=== PATIENT | female | born 1990 | race African-American/Black ===

== ENCOUNTER 2022-03-26 09:24 | Emergency (ER) | payer OTHER ==
[2022-03-26 10:44] LABS: Absolute Lymphocytes (CBC) 1.2 K/uL (0.7-4.9); Hematocrit 29.8 % (36.0-45.0); Lymphocytes % 10.6 % (15.3-44.8); MPV 8.7 fL (7.6-11.3); RBC Red Blood Cell Count 4.68 M/uL (3.86-4.86)
[2022-03-26 11:17] LABS: Albumin 3.5 g/dL (3.4-5.0); Bilirubin Total 0.8 mg/dL (0.2-1.0); Protein, Total 9.3 g/dL (6.4-8.2); Troponin High Sensitivity 4.5 pg/mL (<58.9)
[2022-03-26 11:21] LABS: Potassium 4.2 mmol/L (3.5-5.1)
--- NOTE | 2022-03-26 11:30 | RAD REPORT ---
EXAM DESCRIPTION: RAD - Chest Single View - 03/26/2022 11:22 am CLINICAL HISTORY: chest pain, sob COMPARISON: CHEST SINGLE VIEW dated 12/06/2008; CHEST SINGLE VIEW dated 12/21/1998 FINDINGS: Lines: None. Lungs: No evidence of edema or pneumonia. Pleural: No significant pleural effusions or pneumothorax. Cardiac: Mild cardiomegaly. Bones: No acute fractures. Sternotomy. Other: IMPRESSION: No acute cardiopulmonary disease.
[2022-03-26 12:31] LABS: Urine Blood Negative (Negative); Urine Glucose Negative (Negative); Urine Protein 1+ (Negative); Urine Specific Gravity >=1.030 (1.005-1.030)
[2022-03-26 12:35] LABS: Anisocytosis 1+; Blood Morphology Comment NOTED (NOT SEEN); Hypochromasia 2+; Platelet Estimate ADEQ; White Blood Cell Scan OK (OK)
--- NOTE | 2022-03-26 15:16 | RAD REPORT ---
EXAM DESCRIPTION: CT - Chest For Pe Angio - 03/26/2022 2:57 pm CLINICAL HISTORY: Chest pain. elevated d-dimer COMPARISON: No comparisons TECHNIQUE: CT angiogram of the pulmonary arteries was performed with MIP. All CT scans are performed using dose optimization technique as appropriate and may include automated exposure control or mA/KV adjustment according to patient size. FINDINGS: No evidence of pulmonary thromboembolism. No acute aortic finding demonstrated. The lungs are clear. No significant pericardial or pleural fluid. No concerning bony finding. IMPRESSION: No evidence of pulmonary thromboembolism. No acute lung findings.
--- NOTE | 2022-03-26 15:51 | ER ---
Nurse's Notes [facility] Name: Jaspreet Lackey Age: 31 yrs Sex: Female : 1990 Arrival Date: 03/26/2022 Time: 09:28 Bed 12 Private MD: Diagnosis: Anemia, unspecified Presentation: 03/26 10:49 Coronavirus screen: At this time, the client does not indicate any symptoms associated iw with coronavirus-19. Ebola Screen: Patient negative for fever greater than or equal to 101.5 degrees Fahrenheit, and additional compatible Ebola Virus Disease symptoms Patient denies exposure to infectious person. Patient denies travel to an Ebola-affected area in the 21 days before illness onset. No symptoms or risks identified at this time. 10:49 Acuity: RODRICK 3 iw 10:49 Method Of Arrival: Ambulatory iw 10:50 Chief complaint: Patient states: SOB and vomited this morning. iw 16:07 Chief complaint:. guillen 16:09 Initial Sepsis Screen: Does the patient meet any 2 criteria? No. Patient's initial guillen sepsis screen is negative. Does the patient have a suspected source of infection? No. Patient's initial sepsis screen is negative. Risk Assessment: Do you want to hurt yourself or someone else? Patient reports no desire to harm self or others. Onset of symptoms was March 24, 2022. Triage Assessment: 16:09 General: Appears in no apparent distress. Behavior is calm, cooperative. Respiratory: guillen Reports shortness of breath at rest on exertion Onset: The symptoms/episode began/occurred gradually, the patient has moderate shortness of breath. Historical: - Allergies: 10:50 No Known Allergies; iw - Home Meds: 10:50 None [Active]; iw - PMHx: 10:50 None; iw - Immunization history:: Adult Immunizations up to date. - Social history:: Smoking status: Patient denies any tobacco usage or history of. Screenin:08 Abuse screen: Denies threats or abuse. Denies injuries from another. Nutritional guillen screening: No deficits noted. Tuberculosis screening: No symptoms or risk factors identified. Fall Risk None identified. Assessment: 16:08 Pain: Complains of pain in throat pain. Cardiovascular: Rhythm is regular. Respiratory: guillen Airway is patent Respiratory effort is even, unlabored, Breath sounds are clear bilaterally. GI: Reports nausea, vomiting. Vital Signs: 10:49 BP 107 / 53; Pulse 80; Resp 16; Temp 98.1; Pulse Ox 100% on R/A; iw ED Course: 09:28 Patient arrived in ED. rg4 09:32 Colt Lal PA is PHCP. [facility] 09:32 Sergio Luu MD is Attending Physician. [facility] 09:42 Inserted saline lock: 20 gauge 22 gauge in left antecubital area, using aseptic tp1 technique. Blood collected. 10:26 EKG done, by ED staff, reviewed by Colt BAÑUELOS. mb7 10:26 Allergy band placed. Bed in low position. Call light in reach. Side rails up X 1. Door mb7 closed. Noise minimized. Warm blanket given. 10:49 Agatha Nevarez, RN is Primary Nurse. iw 10:49 Triage completed. iw 11:23 Chest Single View XRAY In Process Unspecified. EDMS 11:30 D-Dimer Sent. iw 14:59 CT Chest For PE Angio In Process Unspecified. EDMS 16:08 No provider procedures requiring assistance completed. Inserted saline lock: IV guillen discontinued, intact, Pressure dressing applied. 16:09 Arm band placed on. guillen Administered Medications: No medications were administered Medication: 16:08 VIS not applicable for this client. guillen Outcome: 15:51 Discharge ordered by . [facility] 16:08 Discharged to home ambulatory. guillen 16:08 Condition: good 16:08 Discharge instructions given to patient, Prescriptions given X 1. 16:10 Patient left the ED. guillen Signatures: Dispatcher [employer] EDNM Colt Lal PA PA Agatha Ochoa, Jessica [place] RN rg4 Liliana Blackman tp1 Radha Lyons mb7 Janis Alvarez RN RN guillen Corrections: (The following items were deleted from the chart) 11:06 11:05 Inserted saline lock: 20 gauge 22 gauge in left antecubital area, using aseptic tp1 technique. Blood collected. tp1
--- NOTE | 2022-03-26 15:51 | EDPHYS ---
Physician Documentation [facility] Name: Jaspreet Lackey Age: 31 yrs Sex: Female : 1990 Arrival Date: 03/26/2022 Time: 09:28 Bed 12 Private MD: ED Physician Sergio Luu HPI: 03/26 09:48 This 31 yrs old Black Female presents to ER via Unassigned with complaints of Breathing jmm Difficulty. 09:48 The patient has shortness of breath at rest. Onset: The symptoms/episode began/occurred jmm gradually. Duration: The symptoms are continuous, and are unchanged since they started. This is a 31-year-old female with no known chronic medical conditions presents emerged part with complaints of shortness of breath, palpitations beginning after an episode of vomiting this morning. Patient denies diarrhea, denies abdominal pain. Patient also complains of some chest pain. Historical: - Allergies: 10:50 No Known Allergies; iw - Home Meds: 10:50 None [Active]; iw - PMHx: 10:50 None; iw - Immunization history:: Adult Immunizations up to date. - Social history:: Smoking status: Patient denies any tobacco usage or history of. ROS: 09:48 Constitutional: Negative for fever, chills, and weight loss, Respiratory: Negative for jmm shortness of breath, cough, wheezing, and pleuritic chest pain. 09:48 Cardiovascular: Positive for chest pain, palpitations. 09:48 Abdomen/GI: Positive for nausea and vomiting. 09:48 All other systems are negative. Exam: 09:48 Constitutional: This is a well developed, well nourished patient who is awake, alert, jmm and in no acute distress. Head/Face: atraumatic. Eyes: EOMI, no conjunctival erythema appreciated ENT: Moist Mucus Membranes Neck: Trachea midline, Supple Chest/axilla: Normal chest wall appearance and motion. Cardiovascular: Regular rate and rhythm. No edema appreciated Respiratory: Normal respirations, no respiratory distress appreciated Abdomen/GI: Non distended, soft Back: Normal ROM Skin: General appearance color normal MS/ Extremity: Moves all extremities, no obvious deformities appreciated, no edema noted to the lower extremities Neuro: Awake and alert Psych: Behavior is normal, Mood is normal, Patient is cooperative and pleasant Vital Signs: 10:49 BP 107 / 53; Pulse 80; Resp 16; Temp 98.1; Pulse Ox 100% on R/A; iw MDM: 09:[address] [facility] 15:49 Immunization status:. Data reviewed: vital signs, nurses notes. Counseling: I had a [facility] detailed discussion with the patient and/or guardian regarding: the historical points, exam findings, and any diagnostic results supporting the discharge/admit diagnosis, lab results, radiology results, the need for outpatient follow up, to return to the emergency department if symptoms worsen or persist or if there are any questions or concerns that arise at home. 03/26 09:39 Order name: CBC with Diff; Complete Time: 12:40 [facility] 03/26 09:39 Order name: CMP; Complete Time: 11:45 [facility] 03/26 09:39 Order name: Lipase; Complete Time: 11:45 [facility] 03/26 09:39 Order name: Troponin High Sensitivity; Complete Time: 11:45 [facility] 03/26 09:50 Order name: D-Dimer; Complete Time: 12:09 [facility] 03/26 10:51 Order name: SARS-COV-2 RT PCR (Document "Date of Onset" if Symptomatic); Complete Time: [facility] 12:24 03/26 09:39 Order name: IV Saline Lock; Complete Time: 10:50 [facility] 03/26 09:39 Order name: Labs collected and sent; Complete Time: 10:50 [facility] 03/26 09:40 Order name: Chest Single View XRAY; Complete Time: 11:45 [facility] 03/26 12:09 Order name: CT Chest For PE Angio; Complete Time: 15:27 [facility] 03/26 12:31 Order name: Urine Dipstick-Ancillary; Complete Time: 12:31 [facility] 03/26 12:36 Order name: CBC Smear Scan; Complete Time: 12:40 [facility] 03/26 09:39 Order name: Urine Dipstick-Ancillary (obtain specimen); Complete Time: 12:31 [facility] 03/26 09:39 Order name: Urine Test (obtain specimen); Complete Time: 12:31 [facility] 03/26 09:39 Order name: EKG - Nurse/Tech; Complete Time: 10:07 [facility] Administered Medications: No medications were administered Disposition: 16:38 Co-signature as Attending Physician, Sergio Luu MD. rn Disposition Summary: 03/26/22 15:51 Discharge Ordered Location: Home jm Condition: Stable jmm Diagnosis - Anemia, unspecified jmm Followup: jmm - With: Private Physician - When: 2 - 3 days - Reason: Recheck today's complaints, Continuance of care, Re-evaluation by your physician Discharge Instructions: - Discharge Summary Sheet jmm - Anemia jm Forms: - Medication Reconciliation Form jm - Thank You Letter jm - Antibiotic Education jm - Prescription Opioid Use jm Prescriptions: - Ferrous Sulfate 325 mg (65 mg Iron) Oral Tablet - take 1 tablet by ORAL route every 8 hours; 90 tablet; Refills: 0, Product jm Selection Permitted Signatures: Dispatcher [employer] Colt Pete PA PA jmm Williams, Irene, RN Sergio Rosas MD MD rn Aissatou-StageJanis rojo RN RN guillen
[2022-03-26 16:16] VITALS: BP 107/53; TEMP 98.1; O2SAT 100
--- NOTE | 2022-03-27 07:56 | EKG ---
Test Date: 2022-03-26 Test Time: 09:52:18 Senior Information Systems Architect: MB MEASUREMENT RESULTS: Intervals: Rate: 75 MN: 188 QRSD: 88 QT: 376 QTc: 419 [place]: P: 64 MN: 188 QRS: 98 T: 73 INTERPRETIVE STATEMENTS: Normal sinus rhythm Rightward axis Borderline ECG Compared to ECG 12/06/2008 07:57:27 Right-axis deviation now present Sinus bradycardia no longer present Incomplete right bundle-branch block no longer present ST (T wave) deviation no longer present Myocardial infarct finding no longer present Electronically Signed On 03-27-22 07:52:26 CDT by Amrik Kelly
== END 2022-03-26 16:10 | disposition home or self-care (01) ==
LOC: ER 09:24
DX: D64.9 Anemia, unspecified (principal); R11.2 Nausea with vomiting, unspecified; Z20.822 Contact with and (suspected) exposure to COVID-19
CPT/HCPCS: 93005; 85025; 36415; 85379; 81003; 84484; 83690; 80053; 71275; 71045; 99284; U0003; Q9967

== ENCOUNTER 2023-07-22 12:20 | Emergency (ER) | payer OTHER ==
--- OUTSIDE RECORDS SUMMARY | 2023-07-22 12:23 | XMS REPORT | Continuity of Care Document ---
:1990 Author Organization [facility] t Address [address] [place] [address] [place] [id number] Care Team Providers Name Role Phone DELON SANTANA Attending Clinician Unavailable Delon Santana Attending Clinician DELON SANTANA Admitting Clinician Unavailable Problems Condition Condition Condition Status Onset Resolution Last Treating Co mments Source Name Details Category Date Date Treatment Clinician Date 01538, 86373, Diagnosis Active 2021-11-12 Me moria E66.01, E66.01, 05-16 10:29:00 l MORBID MORBID 00:00: [place] OBESITY OBESITY 00 Active 05/16/2021 [facility] K21.9 K21.9 Diagnosis Active 2021-04-02 Mem oria Active 03-28 09:13:00 l 03/28/2021 00:00: Jay n 00 [facility] Allergies, Adverse Reactions, Alerts This patient has no known allergies or adverse reactions. Medications This patient has no known medications. Vital Signs Vital Name Observation Time Observation Value Comments Source Height 2021-04-02 14:41:00 167.64 cm [facility] Weight 2021-04-02 14:41:00 [facility] BMI Calculated 2021-04-02 14:41:00 Akbar carballo [place] Height 2021-04-02 14:36:00 167.64 cm [facility] Weight 2021-04-02 14:36:00 Nir Amos BMI Calculated 2021-04-02 14:36:00 Akbar Swanson Procedures This patient has no known procedures. Encounters Start End Encounter Admission Attending Care Care Encounter Source Date/Time Date/Time Type Type Clinicians Facility Department ID 2021-05-17 Inpatient [facility] [id number] Me moria 11:23:45 [facility] 2021-04-02 2021-04-02 Bedded [facility] [id number] Memoria 14:10:00 17:10:00 Outpatient r Dandre [address] [facility] 2021-04-02 2021-04-02 Outpatient [facility] GISEL [id number] Memoria 09:10:00 12:10:00 DELON Platt [facility] 2021-04-02 2021-04-02 [facility] [id number] 09:10:00 12:10:00 Delon Jeffry 00 2021-04-02 2021-04-02 [facility] [id number] 11:30:00 11:30:00 Delon Jeffry 00 Results Test Description Test Time Test Comments Results Result Comments Source IMMUNOLOGY 2021-04-02 16:27:00 Test Item Value Reference Range Interpretation Comme nts H pylori Urease (test code = H pylori Urease) Positive *ABN*(04/02/21 11:27 AM) [id number] 15:06:00 Test Item Value Reference Range Interpretation Comments POC BUN (test code = POC BUN) 11 7-22 [id number] 15:06:00 Test Item Value Reference Range Interpretation Comments POC Creatinine (test code = POC 0.9 0.5-1.4 Creatinine) [facility]BypvxcnTGMGFRBMVJGR9810-26-73 15:06:00 Test Item Value Reference Range Interpretation Comments POC Glucose (test code = POC Glucose) 99 70-99 [facility] HealthUcezjlaEBNIUJSIANTE5770-93-26 15:06:00 Test Item Value Reference Range Interpretation Comments POC Ion Ca (test code = POC Ion Ca) 1.29 1.05-1.25 [facility] HealthNyroojnERNYCCMBKDMF9752-96-54 15:06:00 Test Item Value Reference Range Interpretation Comments POC Hemoglobin (test code = POC 10.5 12.0-16.0 Hemoglobin) [facility] HealthYwxmaeoXDSMLMSUIVZX1857-98-16 15:06:00 Test Item Value Reference Range Interpretation Comments POC Hematocrit (test code = POC 31.0 36.0-48.0 Hematocrit) [facility] Health[id number] 15:06:00 Test Item Value Reference Range Interpretation Comments POC AGAP (test code = POC AGAP) 14.0 10.0-20.0 [facility] HealthOnyfqazYYZHLPNSHIWQ9344-50-11 15:06:00 Test Item Value Reference Range Interpretation Comments eGFR (test code = eGFR) 86 [facility] HealthKjyatgmAQNJOVRSRCVV4429-27-39 15:06:00 Test Item Value Reference Range Interpretation Comments POC Disclaimer (test code See Note *NA*(04/02/21 = POC Disclaimer) 10:06 AM) [facility] H[id number] 15:06:00 Test Item Value Reference Range Interpretation Comments POC Sodium (test code = POC Sodium) 139 135-145 [facility] H[id number] 15:06:00 Test Item Value Reference Range Interpretation Comments POC Potassium (test code = POC 4.2 3.5-5.1 Potassium) [facility] Health[id number] 15:06:00 Test Item Value Reference Range Interpretation Comments POC Chloride (test code = POC Chloride) 104 95-109 [facility] HealthHyohvbvNESHVWYVMZMX8625-83-91 15:06:00 Test Item Value Reference Range Interpretation Comments POC Carbon Dioxide (test code = POC 26 24-32 Carbon Dioxide) [facility]zz[facility]PPTYRKEYU0418-18-45 16:43:00 Test Item Value Reference Range Interpretation Comments Coronavirus (COVID-19) Not Detected (03/28/21 CARLOS (test code = 11:43 AM) Coronavirus (COVID-19) CARLOS) [facility]
[2023-07-22 14:02] LABS: Absolute Lymphocytes (CBC) 1.8 K/uL (0.7-4.9); Hematocrit 30.7 % (36.0-45.0); MCV 67.1 fL (80-100); MPV 8.7 fL (7.6-11.3); Platelets 318 thou/uL (152-406); RBC Red Blood Cell Count 4.58 M/uL (3.86-4.86)
[2023-07-22 14:07] LABS: Potassium 3.7 mEq/L (3.5-5.1)
[2023-07-22 14:09] LABS: Anisocytosis 2+; Blood Morphology Comment NOTED (NOT SEEN); Platelet Estimate ADEQ; White Blood Cell Scan OK (OK)
[2023-07-22 14:10] LABS: Hypochromasia 1+
--- NOTE | 2023-07-22 15:58 | RAD REPORT ---
EXAM DESCRIPTION: US - Pelvis Complete - 07/22/2023 3:36 pm CLINICAL HISTORY: Abd pain;Vaginal bleeding COMPARISON: No comparisons TECHNIQUE: Sonographic grayscale and color flow images of the pelvis were obtained. FINDINGS: The uterus is normal in size, shape and echotexture. Fundal small fibroid measuring 2.9 cm , with possible small calcifications within. This partially obscures the fundal endometrium. The uter us measures 10.4 cm in length. The endometrial stripe measures 6 millimeter in thickness, normal. The right ovary measures 3.9 x 3.0 x 3.6 cm. The left ovary was not visualized. Dominant right ovar dustin cyst or follicle measuring 2.8 cm. No other suspicion ovarian or parovarian lesions. Normal Doppler blood flow was demonstrated of the right ovary. No significant pelvic ascites. IMPRESSION: Fundal 2.9 cm fibroid, partially obscuring the fundal endometrium. No other suspicious endometrial abnormality. Dominant right ovarian 2.8 cm cyst, likely physiologic. Left ovary was not visualized, obscured by lorenza wel gas.
[2023-07-22 18:01] LABS: Specific Gravity 1.005 (1.005-1.030)
[2023-07-22 18:05] LABS: Specific Gravity 1.005 (1.005-1.030); Urine Bacteria <20 /HPF (<20); Urine Bilirubin NEGATIVE (Negative); Urine Blood 3+ (OVER) (Negative); Urine Clarity Extremely Turbid (Clear); Urine Color Light-Brown (Yellow); Urine Crystals Unidentified Few /HPF (None Seen); Urine Glucose NEGATIVE (Negative); Urine Protein TRACE (Negative); Urine RBC >50 /HPF (None Seen); Urine Urobilinogen Normal (Normal); Urine WBC Clump Occasional /HPF (None Seen)
--- NOTE | 2023-07-22 18:23 | EDPHYS ---
Physician Documentation [facility] Name: Jaspreet Lackey Age: 32 yrs Sex: Female : 1990 Arrival Date: 07/22/2023 Time: 12:20 Bed 19 Private MD: ED Physician Jamey Jimijoseph HPI: 07/22 12:56 This 32 yrs old Black Female presents to ER via Ambulatory with complaints of sb4 Dizziness, Vaginal Bleeding. 17:51 patient states that she finished her period about 1 week ago but 2 days ago she started sb4 bleeding again. she reports much heavier flow with blood clots. she denies any history of endometriosis, PCOS, ovarian cysts. she is not on any control and does not see an OBGYN. states she is now dizzy from bleeding. denies any abdominal pain/cramping. 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 - Social history:: Smoking status: Patient denies any tobacco usage or history of. ROS: 17:51 Constitutional: Negative for fever, chills, and weight loss, sb4 17:51 : Positive for vaginal bleeding, menstrual abnormality, 17:51 Neuro: Positive for dizziness, 17:51 All other systems are negative, Exam: 17:51 Constitutional: This is a well developed, well nourished patient who is awake, alert, sb4 and in no acute distress. Head/Face: Normocephalic, atraumatic. Eyes: Extra-ocular motions intact. Periorbital areas with no swelling, redness, or edema. ENT: Mucous membranes moist. Cardiovascular: Regular rate and rhythm with a normal S1 and S2. Respiratory: Lungs have equal breath sounds bilaterally, clear to auscultation and percussion. No rales, rhonchi or wheezes noted. No increased work of breathing, no retractions or nasal flaring. Abdomen/GI: Soft, non-tender, no distension. Skin: Warm, dry with normal turgor. Normal color with no rashes, no lesions, and no evidence of cellulitis. MS/ Extremity: Pulses equal, no cyanosis. Neurovascular intact. Full, normal range of motion. Neuro: Awake and alert, GCS 15, oriented to person, place, time, and situation. Motor strength 5/5 in all extremities. Sensory grossly intact. Vital Signs: 12:42 BP 120 / 57; Pulse 69; Resp 18; Temp 97.6; Pulse Ox 100% on R/A; Weight 122.47 kg; ph Height 5 ft. 5 in. ; 13:40 BP 129 / 101; Pulse 62; Resp 18; Pulse Ox 97% on R/A; eh3 14:30 BP 112 / 70; Pulse 54; Resp 18; Pulse Ox 99% on R/A; eh3 15:41 BP 118 / 68; Pulse 55; Resp 18; Pulse Ox 100% on R/A; eh3 12:42 Body Mass Index 44.93 (122.47 kg, 165.1 cm) ph MDM: 12:35 Patient medically screened. sb4 17:51 Differential diagnosis: , dysmenorrhea, ovarian cysts, endometriosis. sb4 18:50 Data reviewed: vital signs, nurses notes, lab test result(s), radiologic studies, and sb4 as a result, I will discharge patient. Counseling: I had a detailed discussion with the patient and/or guardian regarding the historical points, exam findings, and any diagnostic results supporting the discharge/admit diagnosis, lab results, radiology results, the need for outpatient follow up, an OB/Gyne specialist, to return to the emergency department if symptoms worsen or persist or if there are any questions or concerns that arise at home. 07/22 12:57 Order name: Basic Metabolic Panel; Complete Time: 14:08 sb4 07/22 12:57 Order name: CBC with Diff; Complete Time: 14:12 sb4 07/22 12:57 Order name: Test, Urine; Complete Time: 18:08 sb4 07/22 12:57 Order name: Type And Screen; Complete Time: 14:41 sb4 07/22 12:57 Order name: UAM; Complete Time: 18:08 sb4 07/22 14:10 Order name: CBC Smear Scan; Complete Time: 14:12 EDMS 07/22 18:11 Order name: Urine Culture EDNM 07/22 13:40 Order name: Pelvis Complete; Complete Time: 15:59 EDMS 07/22 12:57 Order name: IV Saline Lock; Complete Time: 13:48 sb4 07/22 12:57 Order name: Labs collected and sent; Complete Time: 13:48 sb4 Administered Medications: No medications were administered Disposition Summary: 07/22/23 18:23 Discharge Ordered Notes: Location: Home sb4 Problem: new sb4 Symptoms: are unchanged sb4 Condition: Stable sb4 Diagnosis - Other ovarian cysts sb4 - Other specified abnormal uterine and vaginal bleeding sb4 - Uterine fibroid sb4 - Anemia, unspecified sb4 - UTI/ Urinary tract infection, site not specified sb4 Followup: sb4 - With: Vida Cuellar MD - When: 1 week - Reason: Further diagnostic work-up, Recheck today's complaints, Re-evaluation by your physician Discharge Instructions: - Discharge Summary Sheet sb4 - Anemia sb4 - Urinary Tract Infection, Adult, Qngc-ic-Bhnt sb4 - Ovarian Cyst, Lgmk-ib-Sfko sb4 - Uterine Fibroids, Pzkt-mx-Txwm sb4 Forms: - Medication Reconciliation Form sb4 - Thank You Letter sb4 - Antibiotic Education sb4 - Prescription Opioid Use sb4 - Patient Portal Instructions sb4 - Leadership Thank You Letter sb4 Prescriptions: - Macrobid 100 mg Oral Capsule - take 1 capsule ORAL route every 12 hours for 7 days; 14 capsule; Refills: 0, sb4 Product Selection Permitted Signatures: Dispatcher [employer] Phyllis Joel, RN RN Vika Griffin PAVeena PAVeena sb4 Corrections: (The following items were deleted from the chart) 13:39 12:57 Transvaginal Study (Probe)+US.RAD.BRZ ordered. ED EDMS
--- NOTE | 2023-07-22 18:23 | ER ---
Nurse's Notes [facility] Name: Jaspreet Lackey Age: 32 yrs Sex: Female : 1990 Arrival Date: 07/22/2023 Time: 12:20 Bed 19 Private MD: Diagnosis: Other ovarian cysts;Other specified abnormal uterine and vaginal bleeding;Uterine fibroid;Anemia, unspecified;UTI/ Urinary tract infection, site not specified Presentation: 07/22 12:42 Chief complaint: Patient states: Normal menstrual cycle completed on 07/16, 2 days ago ph began to have heavy menstrual bleeding w/ clots and cramping, also c/o dizziness. Coronavirus screen: Vaccine status: Patient reports receiving the 2nd dose of the covid vaccine. Ebola Screen: No symptoms or risks identified at this time. Initial Sepsis Screen: Does the patient meet any 2 criteria? No. Patient's initial sepsis screen is negative. Does the patient have a suspected source of infection? No. Patient's initial sepsis screen is negative. Risk Assessment: Do you want to hurt yourself or someone else? Patient reports no desire to harm self or others. Onset of symptoms was July 22, 2023. 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 - Social history:: Smoking status: Patient denies any tobacco usage or history of. Screenin:45 [facility] ED Fall Risk Assessment (Adult) Score/Fall Risk Level 0 - 2 = Low Risk. Abuse eh3 screen: Denies threats or abuse. Denies injuries from another. Nutritional screening: No deficits noted. Tuberculosis screening: No symptoms or risk factors identified. Assessment: 12:45 General: Appears in no apparent distress. uncomfortable, Behavior is calm, cooperative, eh3 appropriate for age. Pain: Complains of pain in abdomen and pelvis. Neuro: Level of Consciousness is awake, alert, obeys commands, Oriented to person, place, time, situation. Cardiovascular: Capillary refill < 3 seconds Patient's skin is warm and dry. Respiratory: Airway is patent Respiratory effort is even, unlabored, Respiratory pattern is regular, symmetrical. GI: Abdomen is round non-distended. : Reports vaginal bleeding that is bright red, with clots, moderate flow. Derm: Skin is healthy with good turgor, Skin is pink, warm \T\ dry. Musculoskeletal: Circulation, motion, and sensation intact. 13:30 Reassessment: Patient appears in no apparent distress at this time. Patient and/or 3 family updated on plan of care and expected duration. Pain level reassessed. Patient is alert, oriented x 3, equal unlabored respirations, skin warm/dry/pink. 14:30 Reassessment: Patient appears in no apparent distress at this time. Patient and/or 3 family updated on plan of care and expected duration. Pain level reassessed. Patient is alert, oriented x 3, equal unlabored respirations, skin warm/dry/pink. 15:18 Reassessment: Pt states she is ready to try ultrasound again, US notified. eh3 15:41 Reassessment: Patient appears in no apparent distress at this time. Patient and/or 3 family updated on plan of care and expected duration. Pain level reassessed. Patient is alert, oriented x 3, equal unlabored respirations, skin warm/dry/pink. 16:30 Reassessment: Patient appears in no apparent distress at this time. Patient and/or 3 family updated on plan of care and expected duration. Pain level reassessed. Patient is alert, oriented x 3, equal unlabored respirations, skin warm/dry/pink. 17:30 Reassessment: Patient appears in no apparent distress at this time. Patient and/or 3 family updated on plan of care and expected duration. Pain level reassessed. Patient is alert, oriented x 3, equal unlabored respirations, skin warm/dry/pink. Vital Signs: 12:42 BP 120 / 57; Pulse 69; Resp 18; Temp 97.6; Pulse Ox 100% on R/A; Weight 122.47 kg; ph Height 5 ft. 5 in. ; 13:40 BP 129 / 101; Pulse 62; Resp 18; Pulse Ox 97% on R/A; eh3 14:30 BP 112 / 70; Pulse 54; Resp 18; Pulse Ox 99% on R/A; eh3 15:41 BP 118 / 68; Pulse 55; Resp 18; Pulse Ox 100% on R/A; eh3 12:42 Body Mass Index 44.93 (122.47 kg, 165.1 cm) ED Course: 12:25 Patient arrived in ED. im 12:34 Vika Perez PA-C is PHCP. sb4 12:34 Wilman Concepcion is Attending Physician. sb4 12:44 Triage completed. ph 12:44 Arm band placed on Patient placed in an exam room. ph 12:45 Anai Pollock, RN is Primary Nurse. eh3 12:45 Patient has correct armband on for positive identification. Bed in low position. Call eh3 light in reach. Side rails up X2. Provided Education on: Use of call ivey. Pulse ox on. NIBP on. 15:35 Pelvis Complete In Process Unspecified. EDMS 18:23 Vida Cuellar MD is Referral Physician. sb4 18:37 No provider procedures requiring assistance completed. IV discontinued, intact, eh3 bleeding controlled, No redness/swelling at site. Pressure dressing applied. Administered Medications: No medications were administered Medication: 18:38 VIS not applicable for this client. eh3 Outcome: 18:23 Discharge ordered by MD. sb4 18:38 Discharged to home ambulatory, eh3 18:38 Condition: stable 18:38 Discharge instructions given to patient, Instructed on discharge instructions, follow up and referral plans. medication usage, Demonstrated understanding of instructions, follow-up care, medications, Prescriptions given X 1, 18:38 Patient left the ED. eh3 Signatures: Dispatcher [employer] [facility] Phyllis Pollock RN RN Anai Pollock RN RN 3 Vika Perez PA-C PA-C sb4 Dyana Ayala im Corrections: (The following items were deleted from the chart) 13:39 13:34 In radiology for Transvaginal Study (Probe)+[email or web address]. [facility] EDSC 14:39 14:30 BP 149 / 69; Pulse 79bpm; Resp 20bpm; Pulse Ox 95% RA; eh3 eh3 15:45 15:30 BP 118 / 68; Pulse 55bpm; Resp 18bpm; Pulse Ox 100% RA; eh3 eh3 17:02 12:58 Anai Pollock, RN is Primary Nurse. eh3 eh3
[2023-07-22 20:14] VITALS: TEMP 97.6
[2023-07-22 20:18] VITALS: BP 118/68; O2SAT 100
== END 2023-07-22 18:38 | disposition home or self-care (01) ==
LOC: ER 12:20
DX: N83.299 Other ovarian cyst, unspecified side (principal); D25.9 Leiomyoma of uterus, unspecified; D64.9 Anemia, unspecified; N39.0 Urinary tract infection, site not specified
CPT/HCPCS: 36415; 76856; 80048; 81001; 81025; 85025; 86850; 86900; 86901; 87086; 87088